=== PATIENT | female | born 1975 | race Caucasian/White ===

== ENCOUNTER 2016-11-19 11:17 | Emergency (ER) | payer OTHER ==
[2016-11-19 11:56] LABS: BASOPHILS 0.2 % (0.0-2.0); EOSINOPHILS 2.7 % (0-7); HEMATOCRIT 35.3 % (36.0-48.0); HEMOGLOBIN 10.9 g/dL (12-16); IMMATURE GRANULOCYTES 0.2 % (0-5); LYMPHOCYTES 27.2 % (15-50); MCH 23.7 pg (26.0-34.0); MCHC 30.9 g/dL (31.0-37.0); MCV 76.7 fL (80.0-100.0); MEAN PLATELET VOLUME 8.8 fL (7.4-10.4); MONOCYTES 6.6 % (2-11); NEUTROPHILS 63.1 % (40-80); PLATELET COUNT 331 10x3/uL (130-400); RDW 15.4 % (11.5-14.5); WBC 12.1 10x3/uL (4.8-10.8)
[2016-11-19 12:17] LABS: APTT 25.7 SECONDS (22.8-39.4); INR 0.91 (0.85-1.17); PROTIME 12.1 SECONDS (11.6-15.0)
[2016-11-19 12:22] LABS: ALBUMIN 3.4 g/dL (3.4-5.0); ALKALINE PHOSPHATASE 87 U/L (46-116); ALT (SGPT) 24 U/L (10-68); BILIRUBIN - TOTAL 0.25 mg/dL (0.2-1.3); CALC OSMOLALITY 279 mosm/kg (275-300); CALCIUM 9.1 mg/dL (8.5-10.1); CARBON DIOXIDE 31.4 mmol/L (21.0-32.0); CHLORIDE - SERUM 103 mmol/L (98-107); CREATININE - SERUM 0.6 mg/dL (0.6-1.3); GLUCOSE 107 mg/dL (74-106); POTASSIUM - SERUM 3.6 mmol/L (3.5-5.1); PROTEIN - SERUM 7.5 g/dL (6.4-8.2); SODIUM 141 mmol/L (136-145); UREA NITROGEN 11 mg/dL (7-18); eGFR NON AFRICAN AMERICAN > 90 mL/min (90-120)
== END 2016-11-19 14:35 | disposition home or self-care (01) ==
LOC: D.ER 11:17
PROVIDERS: Emergency Medicine
DX: I10 Essential (primary) hypertension (principal); R55 Syncope and collapse

== ENCOUNTER → 2019-01-30 08:10 | Outpatient (CLI) | payer OTHER | END | disposition home or self-care (01) | LOC: D.CT 08:00 | PROVIDERS: ATTEND Thoracic Surgery (Cardiothoracic Vascular Surgery) | DX: I65.22 Occlusion and stenosis of left carotid artery (principal) ==